=== PATIENT | male | born 1985 | race African-American/Black ===

== ENCOUNTER 2023-01-27 19:32 | Emergency (ER) | payer OTHER ==
[2023-01-27] MEDS ORDERED: MORPHINE 15 MG IR TAB PO ONE (20:48)
--- NOTE | 2023-01-27 20:56 | RAD REPORT ---
EXAM DESCRIPTION: RAD - Elbow Left 3 View - 01/27/2023 8:36 pm CLINICAL HISTORY: PAIN COMPARISON: Wrist Left 3 View dated 01/27/2023; Forearm Left dated 01/27/2023 FINDINGS/IMPRESSION: Mid radial and ulnar diaphyseal fractures. No elbow fracture identified, mary chowdhury
--- NOTE | 2023-01-27 20:57 | RAD REPORT ---
EXAM DESCRIPTION: RAD - Wrist Left 3 View - 01/27/2023 8:36 pm CLINICAL HISTORY: DEFORMITY COMPARISON: No comparisons FINDINGS/IMPRESSION: Displaced mid radial and ulnar diaphyseal fractures with nearly 2 cm and 1 cm o f overriding, respectively. There is approximately 1 full shaft width of maximal displacement of both fractures with mild angulation.
--- NOTE | 2023-01-27 20:58 | RAD REPORT ---
EXAM DESCRIPTION: RAD - Forearm Left - 01/27/2023 8:36 pm CLINICAL HISTORY: DEFORMITY COMPARISON: No comparisons FINDINGS/IMPRESSION: Displaced mid radial and ulnar diaphyseal fractures with approximately 2 cm and 1 cm of overriding, respectively. There is also dorsal angulation. Both fractures have approximately a full shaft width of displacement.
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
[2023-01-27 21:32] LABS: Absolute Lymphocytes (CBC) 1.2 K/uL (0.7-4.9); Hematocrit 41.9 % (39.6-49.0); Lymphocytes % 14.6 % (15.3-44.8); MCV 84.4 fL (80-100); MPV 8.8 fL (7.6-11.3); RBC Red Blood Cell Count 4.96 M/uL (4.33-5.43)
[2023-01-27] MEDS ORDERED: FENTANYL CITR 100 MCG/2 ML ONE (21:35)
[2023-01-27] MEDS ORDERED: CEFAZOLIN SODIUM 1 GM/VIAL ONE (21:35)
[2023-01-27 21:45] LABS: Potassium 4.3 mEq/L (3.5-5.1)
[2023-01-27 22:56] VITALS: TEMP 98.3
[2023-01-27 22:59] VITALS: O2SAT 95
[2023-01-27 23:01] VITALS: BP 158/97
== END 2023-01-27 22:23 | disposition short-term general hospital (02) ==
LOC: ER 19:32
PROC: 2W3DX1Z Immobilization of Left Lower Arm using Splint (ICD-10-PCS; principal; 2023-01-27)
DX: S52.302A Unspecified fracture of shaft of left radius, initial encounter for closed fracture (principal)
CPT/HCPCS: 96365; 85025; 80048; 36415; 73080; 73090; 73110; 96375; 99285; 29125; J3010; J0690